=== PATIENT | male | born 1990 | race Caucasian/White ===

== ENCOUNTER 2022-04-29 00:14 | Observation (INO) | payer SELFPAY ==
[2022-04-29] MEDS ORDERED: Ondansetron PF 4 MG/2 ML Vial ONE (01:16)
[2022-04-29] MEDS ORDERED: Ketorolac Tromethamine 30 MG/ML VIAL ONE (01:16)
[2022-04-29 01:40] LABS: #Basophils 0.1 thou/uL (0.0-0.2); #Lymphocytes 1.5 thou/uL (1.20-3.40); #Monocytes 0.8 thou/uL (0.11-0.59); #Neutrophils 17.2 thou/uL (1.40-6.50); %Basophils 0.6 % (0.0-1.0); %Eosinophils 0.1 % (0.0-10.0); %Lymphocytes 7.8 % (21.0-51.0); %Monocytes 4.1 % (0.0-10.0); %Neutrophils 87.4 % (42.0-75.0); Hemoglobin 11.4 g/dL (14.0-18.0); Mean Corpuscular HGB CONC 34.1 g/dL (32.0-36.0); Mean Corpuscular Hemoglobin 30.6 pg (27.0-31.0); Mean Corpuscular Volume 89.7 fL (78.0-98.0); Mean Platelet Volume 7.5 fL (7.4-10.4); Platelet Count 318 thou/uL (130-400); RBC Distribution Width 12.3 % (11.5-14.5); Red Blood Cell (RBC) Count 3.73 mill/uL (4.70-6.10); White Blood Cell (WBC) Count 19.6 thou/uL (4.8-10.8)
[2022-04-29] MEDS ORDERED: Diazepam 10 MG/2 ML SYRINGE ONE (01:51)
[2022-04-29 02:04] LABS: ALT (SGPT) 60 U/L (8-55); AST (SGOT) 19 U/L (5-34); Albumin 3.7 g/dL (3.5-5.0); Alkaline Phosphatase 54 U/L (40-110); Anion Gap 15 mmol/L (10-20); BUN (Urea Nitrogen) 11 mg/dL (8.9-20.6); Bilirubin, Total 0.5 mg/dL (0.2-1.2); CK (CPK) 30 U/L (30-200); Calc. Creatinine Clearance 0 mL/min (70-130); Calcium 8.7 mg/dL (7.8-10.44); Carbon Dioxide 18 mmol/L (22-29); Chloride 106 mmol/L (98-107); Estimated GFR 117; Globulin 2.5 g/dL (2.4-3.5); Glucose 234 mg/dL (70-105); Lipase 10 U/L (8-78); Potassium 4.5 mmol/L (3.5-5.1); Protein, Total 6.2 g/dL (6.0-8.3); Sodium 134 mmol/L (136-145)
[2022-04-29] MEDS ORDERED: Morphine 2 MG/ML VIAL ONE (03:14)
[2022-04-29] MEDS ORDERED: Ketorolac Tromethamine 30 MG/ML VIAL IVP PRN (05:41)
[2022-04-29] MEDS ORDERED: Morphine 2 MG/ML VIAL SLOW IVP PRN ×2 (05:41→12:36)
[2022-04-29] MEDS ORDERED: Morphine 4 MG/ML VIAL SLOW IVP PRN (05:41)
[2022-04-29] MEDS ORDERED: Diazepam 10 MG/2 ML SYRINGE IVP PRN (05:42)
[2022-04-29] MEDS ORDERED: Ondansetron ODT 4 MG TAB SL PRN (05:45)
[2022-04-29] MEDS ORDERED: Ondansetron PF 4 MG/2 ML Vial IVP PRN ×2 (05:45→12:36)
[2022-04-29] MEDS ORDERED: Acetaminophen 325 MG TAB PO PRN (05:45)
[2022-04-29 06:17] VITALS: BMI 37.3
[2022-04-29] MEDS: D5 1/2 NS w/20 mEq KCL 1,000 ML IV SCH ×4 (08:32→23:32)
[2022-04-29] MEDS ORDERED: Dextrose 5% in Water 1,000 ML IV PRN (12:36)
[2022-04-29] MEDS ORDERED: Promethazine HCl 25 MG/ML VIAL IM PRN (12:36)
[2022-04-29] MEDS ORDERED: Dextrose 50% Abboject 50 ML SYRINGE SLOW IVP PRN (12:36)
[2022-04-29] MEDS ORDERED: hydrALAZINE 20 MG/ML VIAL SLOW IVP PRN (12:36)
[2022-04-29] MEDS: Ketorolac Tromethamine 30 MG/ML VIAL IVP SCH (18:51)
[2022-04-29] MEDS: Famotidine/PF 20 mg/2ml Vial SLOW IVP SCH (20:59)
[2022-04-29] MEDS: Famotidine 20 MG TAB PO SCH (21:01)
[2022-04-30] MEDS: Ketorolac Tromethamine 30 MG/ML VIAL IVP SCH ×2 (01:16→06:07)
[2022-04-30] MEDS: HYDROcodone/Acetaminophen 10/325 mg Tablet PO PRN ×2 (04:25→10:39)
[2022-04-30] MEDS: D5 1/2 NS w/20 mEq KCL 1,000 ML IV SCH ×2 (06:41→08:06)
[2022-04-30] MEDS: Famotidine 20 MG TAB PO SCH (08:03)
[2022-04-30] MEDS: Famotidine/PF 20 mg/2ml Vial SLOW IVP SCH (08:04)
[2022-04-30] MEDS ORDERED: Nicotine 21 MG PATCH TD SCH (09:00)
[2022-04-30] MEDS ORDERED: Thiamine 100 MG TAB PO SCH (09:00)
[2022-04-30 10:34] VITALS: BP 150/83; TEMP 98.1
== END 2022-04-30 10:55 | disposition home or self-care (01) ==
LOC: ERS 00:14 → SURG A 04:16
PROVIDERS: ADMIT Surgery; ATTEND Surgery
DX: G89.18 Other acute postprocedural pain (principal); Z90.89 Acquired absence of other organs
CPT/HCPCS: 71045; 80053; 82550; 83690; 84484; 85025; 93005; 94640; 96375; 96376; G0378; J1885; J2270; J2405; J3360; J3480; J7620; S0028